=== PATIENT | male | born 1980 | race Caucasian/White ===

== ENCOUNTER 2021-03-24 10:17 | Emergency (ER) | payer OTHER ==
[2021-03-24] MEDS ORDERED: NORCO 5-325 TA1 EACH PO (12:16)
[2021-03-24] MEDS ORDERED: KEFLEX250 MG PO (12:16)
== END 2021-03-24 12:35 | disposition home or self-care (01) ==
LOC: FER 10:17
DX: S67.192A Crushing injury of right middle finger, initial encounter (principal); S67.194A Crushing injury of right ring finger, initial encounter; S61.212A Laceration without foreign body of right middle finger without damage to nail, initial encounter; S61.214A Laceration without foreign body of right ring finger without damage to nail, initial encounter; W23.0XXA Caught, crushed, jammed, or pinched between moving objects, initial encounter; Y92.89 Other specified places as the place of occurrence of the external cause; Y99.0 Civilian activity done for income or pay
CPT/HCPCS: 73140

== ENCOUNTER 2021-03-25 09:31 | Emergency (ER) | payer OTHER ==
[~2021-03-25 09:31] MED LIST: KEFLEX250 MG PO; NORCO 5-325 TA1 EACH PO
== END 2021-03-25 10:52 | disposition home or self-care (01) ==
LOC: FER 09:31
DX: S61.209D Unspecified open wound of unspecified finger without damage to nail, subsequent encounter (principal); Z23 Encounter for immunization; F17.210 Nicotine dependence, cigarettes, uncomplicated; X58.XXXD Exposure to other specified factors, subsequent encounter
CPT/HCPCS: 90471; 90715